=== PATIENT | male | born 2005 | race Caucasian/White ===

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

== ENCOUNTER 2025-05-01 07:58 | Emergency (ER) | payer BC, OTHER ==
[2025-05-01] MEDS: Bacitracin Oint 1 GM U/D Packet TOP ONE (08:33)
[2025-05-01 09:07] VITALS: BP 122/81; PULSE 66
[2025-05-01] MEDS: Diphtheria,Pertussis(Acell),Tetanus Vaccine 0.5 ML Syringe IM ONE (09:07)
== END 2025-05-01 09:16 | disposition home or self-care (01) ==
LOC: JP.ED 07:58
DX: S06.0X0A Concussion without loss of consciousness, initial encounter (principal); J45.909 Unspecified asthma, uncomplicated; K21.9 Gastro-esophageal reflux disease without esophagitis; Z79.899 Other long term (current) drug therapy; W01.198A Fall on same level from slipping, tripping and stumbling with subsequent striking against other object, initial encounter; Z23 Encounter for immunization
CPT/HCPCS: 90471; 90715; 99283-25